=== PATIENT | female | born 1960 | race Caucasian/White ===

== ENCOUNTER 2017-07-10 10:12 | Emergency (ER) | payer OTHER, SELFPAY ==
[2017-07-10 10:13] VITALS: BP 118/73; PULSE 83; RESP 14; TEMP 36.6; O2SAT 97; BMI 39.3
[2017-07-10 10:21] VITALS: PULSE 86; RESP 15; O2SAT 96
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
[2017-07-10 12:27] VITALS: PULSE 84; RESP 14; O2SAT 99
== END 2017-07-10 12:27 | disposition home or self-care (01) ==
PROVIDERS: Emergency Provider Emergency Medicine
DX: S39.012A Strain of muscle, fascia and tendon of lower back, initial encounter (principal); S40.012A Contusion of left shoulder, initial encounter; S20.212A Contusion of left front wall of thorax, initial encounter; S61.411A Laceration without foreign body of right hand, initial encounter; S00.81XA Abrasion of other part of head, initial encounter; V48.5XXA Car driver injured in noncollision transport accident in traffic accident, initial encounter; Y93.89 Activity, other specified; Y92.410 Unspecified street and highway as the place of occurrence of the external cause; Y99.9 Unspecified external cause status; I10 Essential (primary) hypertension; E11.9 Type 2 diabetes mellitus without complications; Z72.0 Tobacco use; Z79.84 Long term (current) use of oral hypoglycemic drugs; Z79.899 Other long term (current) drug therapy
CPT/HCPCS: 71046; 99283